=== PATIENT | female | born 1950 | race Caucasian/White ===

== ENCOUNTER 2016-09-28 15:35 | Inpatient (IN) | payer OTHER ==
[~2016-09-28] VITALS: Ht 161.3 cm; Wt 106.2 kg
[~2016-09-28 15:35] MED LIST: ASPIRIN325 MG PO; AZITHROMYCIN250 MG PO; Ativan PO; B COMPLETE1 EACH PO; BENADRYL25 MG PO; CELEXA20 MG PO; CENTRUM SILVER1 EAC3 PO; CIPRO500 MG PO; COUMADIN1 MG PO; CYANOCOBAL1000 MCG/2 IM; CYCLOBENZAPRINE5 MG PO; Claritin,Alavart PO; Coumadin,Jantoven PO; DETROL LA2 MG PO; ELIQUIS5 MG PO; FLAGYL500 MG PO; FLEXERIL5 MG PO; FLONASE16 G1 BOTH NARES; FOLIC ACID0.4 MG PO; Flonase BOTH NARES; GABAPENTIN300 MG PO; GABAPENTIN400 MG PO; HYDROCHLOROTHIA25 MG PO; HYDROCODON-ACE1 EAC7 PO; HYDROCODON-ACE1 EAC9 PO; Hydrodiuril,Oretic,E PO; KEFLEX500 MG PO; LISINOPRIL5 MG PO; LITE COAT ASPI325 M1 PO; LOPRESSOR25 MG PO; LORADAMED10 MG PO; LORAZEPAM0.5 MG PO; Lopressor PO; METOPROLOL TART25 MG PO; MOBIC15 MG PO; NEXIUM20 MG PO; Nucynta PO; OXYBUTYNIN CHLO10 MG PO; OXYCODONE HCL5 MG PO; OXYCODONE-APAP1 EACH PO; OxyCONTIN PO; PERCOCET 10/1 TABLET PO; PRILOSEC OTC20 MG PO; Pravachol PO; REMICADE10 MG/ML IV; SENNA-TIME S T1 EACH PO; SERTRALINE HCL50 MG PO; SIMVASTATIN20 MG PO; SINGULAIR10 MG PO; SUDAFED 12-HOU120 MG PO; SYNTHROID25 MCG PO; Senokot S,Pericolace PO; TIZANIDINE HCL2 M1 PO; TRAMADOL HCL50 MG PO; TYLENOL REGULA325 MG PO; VESICARE10 MG PO; VIBRAMYCIN100 MG PO; VOLTAREN 1% GE100 GM TP; ZANAFLEX4 M1 PO; ZOCOR40 MG PO; ZOLOFT100 MG PO; Zestril,Prinivil PO; [UNRECOGNIZED DRUG - OTHER] PO; [UNRECOGNIZED DRUG - OTHER] PO; [UNRECOGNIZED DRUG - OTHER] PO
[2016-09-28 15:59] LABS: EOSINOPHIL (%) 2.1 % (0-5); EOSINOPHIL COUNT 0.2 K/uL (0-0.3); HEMATOCRIT 40.6 % (36.0-46.0); IMMATURE GRANULOCYTE (%) 0.1 % (0.0-0.7); IMMATURE GRANULOCYTE COUNT 0.1 K/uL; LYMPHOCYTE COUNT 1.2 K/uL (1.0-2.8); MCV 94.2 FL (83-99); MEAN PLAT.VOLUME 10.3 uM^3 (9.5-12.4); MONOCYTE (%) 7.8 % (3-12); MONOCYTE COUNT 0.6 K/uL (0-0.8); NEUTROPHIL (%) 73.4 % (45-76); NEUTROPHIL COUNT 5.3 K/uL (1.8-6.4); PLATELET COUNT 258 K/uL (156-360); RBC DIS.WIDTH-SD 43.4 % (39-53); RED BLOOD COUNT 4.31 M/uL (3.80-5.20); WHITE BLOOD COUNT 7.2 K/uL (4.1-10.2)
[2016-09-28 16:08] LABS: CHLORIDE 104 mEq/L (99-109); POTASSIUM 3.9 mEq/L (3.7-5.4); SODIUM 138 mEq/L (136-147)
[2016-09-28 16:10] LABS: GLUCOSE 105 mg/dL (70-99)
[2016-09-28 16:11] LABS: ANION GAP 10 MEQ/L (2-14); D-DIMER ELISA 0.68 mg/L FEU (< 0.57)
[2016-09-28 16:12] LABS: TOTAL BILIRUBIN 0.6 mg/dL (0.0-1.0)
[2016-09-28 16:14] LABS: ALKALINE PHOSPHATASE 92 IU/L (3-129); GFR ESTIMATE (CALCULATED) > 59 mL/min/
[2016-09-28 16:15] LABS: UREA NITROGEN (BUN) 18 mg/dL (9-23)
[2016-09-28 16:17] LABS: CREATINE KINASE 57 IU/L (1-294); TOTAL CK 57 IU/L (1-294)
[2016-09-28 16:20] LABS: TROP-I INTERPRETATION NEGATIVE; TROPONIN-I < 0.01 ng/mL (0.0-0.30)
[2016-09-28 16:24] LABS: CK-MB 0.9 ng/mL (0.0-4.9)
[2016-09-28 23:29] LABS: TROP-I INTERPRETATION NEGATIVE; TROPONIN-I < 0.01 ng/mL (0.0-0.30)
[2016-09-29 04:44] LABS: HEMATOCRIT 39.1 % (36.0-46.0); MCH 32.3 PG (29.0-34.0); MCHC 34.3 G/DL (30.0-36.0); MCV 94.2 FL (83-99); MEAN PLAT.VOLUME 10.7 uM^3 (9.5-12.4); PLATELET COUNT 247 K/uL (156-360); RED BLOOD COUNT 4.15 M/uL (3.80-5.20); WHITE BLOOD COUNT 6.3 K/uL (4.1-10.2)
[2016-09-29 04:57] LABS: CHLORIDE 106 mEq/L (99-109); POTASSIUM 3.2 mEq/L (3.7-5.4); SODIUM 138 mEq/L (136-147)
[2016-09-29 04:59] LABS: GLUCOSE 120 mg/dL (70-99)
[2016-09-29 05:01] LABS: ANION GAP 12 MEQ/L (2-14); TOTAL BILIRUBIN 0.5 mg/dL (0.0-1.0)
[2016-09-29 05:03] LABS: ALKALINE PHOSPHATASE 82 IU/L (3-129); GFR ESTIMATE (CALCULATED) > 59 mL/min/
[2016-09-29 05:04] LABS: UREA NITROGEN (BUN) 16 mg/dL (9-23)
[2016-09-29 05:12] LABS: TROP-I INTERPRETATION NEGATIVE; TROPONIN-I < 0.01 ng/mL (0.0-0.30)
[2016-09-29 15:25] VITALS: BP 119/69
== END 2016-09-29 13:55 | disposition home or self-care (01) | DRG 309 ==
LOC: EME 15:35 → EDOF 21:45
PROVIDERS: Emergency Medicine; Internal Medicine
DX: I48.0 Paroxysmal atrial fibrillation (principal); Z68.41 Body mass index [BMI] 40.0-44.9, adult; R07.89 Other chest pain; I10 Essential (primary) hypertension; I27.2 Other secondary pulmonary hypertension; E78.00 Pure hypercholesterolemia, unspecified; F32.9 Major depressive disorder, single episode, unspecified; M06.9 Rheumatoid arthritis, unspecified; Z96.651 Presence of right artificial knee joint; E66.01 Morbid (severe) obesity due to excess calories; Z98.1 Arthrodesis status
CPT/HCPCS: 36415; 71010; 71275; 80053; 81003; 82550; 82553; 83880; 84484; 85025; 85027; 85379; 93005; 99281; 99285; G0378; J1644; J3475; J7030

== ENCOUNTER → 2016-10-24 | Outpatient (CLI) | payer OTHER | END | disposition home or self-care (01) | LOC: EKG 12:46 | DX: I27.2 Other secondary pulmonary hypertension (principal); R06.02 Shortness of breath | CPT/HCPCS: 93306 ==